=== PATIENT | male | born 1940 | race Caucasian/White ===

== ENCOUNTER 2021-07-27 17:08 | Inpatient (IN) | payer MEDICARE ==
[~2021-07-27] VITALS: Ht 172.7 cm; Wt 93.0 kg
[~2021-07-27 17:08] MED LIST: ALDACTONE 25MG25 MG PO; AUGMENTIN 875-1 EACH PO; BROVANA15 MCG/2 M NEB; BUDESONIDE0.5 MG/2 M NEB; COMBIVENT0.074 GM/I INH; COZAAR25 MG PO; CRESTOR20 MG PO; CYANOCOBAL1000 MCG/1 IM; DOXYCYCLINE HY100 M2 PO; DULERA 200 MCG8.8 GM INH; ELIQUIS2.5 MG PO; ELIQUIS5 MG PO; ENTRESTO 24 MG1 EACH PO; FLOMAX 0.4 MG0.4 MG PO; GLUCOPHAGE XR500 MG PO; HUMALOG100 UNIT/1 SC; LANTUS100 UNIT/1 SQ; LASIX20 MG PO; LEVAQUIN500 MG PO; LOPRESSOR50 MG PO; MEDROL TAB 4 MG4 MG PO; NEURONTIN 300300 MG PO; OMNICEF 300 MG300 MG PO; PLAVIX 75 MG TA75 MG PO; PREDNISONE 50 M50 MG PO; PREDNISONE20 MG PO; SENOKOT-S TABL1 EACH PO; SYNTHROID25 MCG PO; TYLENOL 325MG325 MG PO; VENTOLIN/PROVE0.5 ML INH; XARELTO10 MG PO; ZYRTEC10 M3 PO
[2021-07-27 17:55] LABS: RED BLOOD COUNT 4.02 M/UL (4.20-5.50); WHITE BLOOD COUNT 6.4 K/UL (4.5-11.0)
[2021-07-27 18:17] LABS: BUN/CREATININE RATIO 14 (0-10)
[2021-07-28] MEDS ORDERED: COZAAR25 MG PO (00:04)
[2021-07-28 06:23] LABS: HEMOGLOBIN 10.4 gm/dl (14.0-17.5); RED BLOOD COUNT 3.34 M/UL (4.20-5.50); WHITE BLOOD COUNT 18.4 K/UL (4.5-11.0)
[2021-07-28] MEDS ORDERED: ALBUTEROL2.5 MG/3 M INH (11:43)
[2021-07-28] MEDS ORDERED: BUDESONIDE0.5 MG/2 M INH (11:44)
[2021-07-28] MEDS ORDERED: HUMALOG100 UNIT/1 SQ (11:44)
[2021-07-28 17:43] LABS: BORDETELLA PARAPERTUSSIS Not Detected (Not Detectd); BORDETELLA PERTUSSIS Not Detected (Not Detectd); CHLAMYDIA PNEUMONIAE Not Detected (Not Detectd); CORONAVIRUS HKU1 Not Detected (Not Detectd); CORONAVIRUS NL63 Not Detected (Not Detectd); CORONAVIRUS OC43 Not Detected (Not Detectd); CORONOAVIRUS 229E Not Detected (Not Detectd); HUMAN METAPNEUMOVIRUS Not Detected (Not Detectd); HUMAN RHINOVIRUS/ENTEROVIRUS Not Detected (Not Detectd); INFLUENZA A Not Detected (Not Detectd); INFLUENZA B Not Detected (Not Detectd); MYCOPLASMA PNEUMONIAE Not Detected (Not Detectd); PARAINFLUENZA VIRUS 1 Not Detected (Not Detectd); PARAINFLUENZA VIRUS 2 Not Detected (Not Detectd); PARAINFLUENZA VIRUS 3 Not Detected (Not Detectd); PARAINFLUENZA VIRUS 4 Not Detected (Not Detectd); RESPIRATORY SYNCYTIAL VIRUS Not Detected (Not Detectd)
[2021-07-28 19:41] LABS: SARS-CoV-2 DETECTED (Not Detectd)
[2021-07-29 07:17] LABS: HEMOGLOBIN 11.3 gm/dl (14.0-17.5); RED BLOOD COUNT 3.56 M/UL (4.20-5.50); WHITE BLOOD COUNT 12.1 K/UL (4.5-11.0)
[2021-07-30 05:30] LABS: HEMOGLOBIN 10.6 gm/dl (14.0-17.5); RED BLOOD COUNT 3.35 M/UL (4.20-5.50)
[2021-07-30 05:36] LABS: WHITE BLOOD COUNT 8.2 K/UL (4.5-11.0)
[2021-07-30] MEDS ORDERED: AUGMENTIN 500-500 MG PO (10:38)
[2021-07-30] MEDS ORDERED: LOPRESSOR 25 MG25 MG PO (10:38)
== END 2021-07-30 13:20 | disposition home or self-care (01) | DRG 864 ==
LOC: ER1 17:08 → MED SURG 4 21:16 → CDU 21:16 → MED SURG 4 23:41
PROVIDERS: Internal Medicine Infectious Disease; Physician Assistant; ADMIT Internal Medicine
PROC: 8E0ZXY6 Isolation (ICD-10-PCS; principal; 2021-07-27)
DX: R50.9 Fever, unspecified (principal); U07.1 COVID-19; G93.41 Metabolic encephalopathy; J44.1 Chronic obstructive pulmonary disease with (acute) exacerbation; N17.9 Acute kidney failure, unspecified; I13.0 Hypertensive heart and chronic kidney disease with heart failure and stage 1 through stage 4 chronic kidney disease, or unspecified chronic kidney disease; I48.20 Chronic atrial fibrillation, unspecified; R74.01 Elevation of levels of liver transaminase levels; E11.65 Type 2 diabetes mellitus with hyperglycemia; I25.10 Atherosclerotic heart disease of native coronary artery without angina pectoris; I25.5 Ischemic cardiomyopathy; E11.22 Type 2 diabetes mellitus with diabetic chronic kidney disease; N18.30 Chronic kidney disease, stage 3 unspecified; E87.5 Hyperkalemia; I48.0 Paroxysmal atrial fibrillation; Z79.01 Long term (current) use of anticoagulants; Z95.810 Presence of automatic (implantable) cardiac defibrillator; Z79.4 Long term (current) use of insulin; Z87.01 Personal history of pneumonia (recurrent); Z87.440 Personal history of urinary (tract) infections; Z99.81 Dependence on supplemental oxygen; Z90.49 Acquired absence of other specified parts of digestive tract
CPT/HCPCS: 36415; 70450; 71045; 71250; 76705; 80048; 80053; 80202; 81001; 82550; 82553; 82962; 83605; 83615; 83690; 83735; 83874; 84484; 85025; 86140; 87040; 87081; 87086; 87633; 93005; 94640; 94664; 94760; 96374; 96375; 96376; 99284; J2543; J3370; J7030; J7060; U0002

== ENCOUNTER 2021-08-05 09:18 | Inpatient (IN) | payer MEDICARE ==
[~2021-08-05] VITALS: Ht 175.3 cm; Wt 85.4 kg
[~2021-08-05 09:18] MED LIST changes: +ALBUTEROL2.5 MG/3 M INH; +AUGMENTIN 500-500 MG PO; +BUDESONIDE0.5 MG/2 M INH; +HUMALOG100 UNIT/1 SQ; +LOPRESSOR 25 MG25 MG PO
[2021-08-05 11:07] LABS: HEMOGLOBIN 11.5 gm/dl (14.0-17.5); RED BLOOD COUNT 3.61 M/UL (4.20-5.50); WHITE BLOOD COUNT 16.1 K/UL (4.5-11.0)
[2021-08-05 11:30] LABS: BUN/CREATININE RATIO 14 (0-10)
[2021-08-05] MEDS ORDERED: AUGMENTIN 500-500 MG PO (23:17)
[2021-08-06 05:22] LABS: HEMOGLOBIN 9.9 gm/dl (14.0-17.5); WHITE BLOOD COUNT 13.9 K/UL (4.5-11.0)
[2021-08-06 05:30] LABS: RED BLOOD COUNT 3.15 M/UL (4.20-5.50)
[2021-08-07 04:21] LABS: HEMOGLOBIN 10.2 gm/dl (14.0-17.5); RED BLOOD COUNT 3.21 M/UL (4.20-5.50); WHITE BLOOD COUNT 13.9 K/UL (4.5-11.0)
[2021-08-08 04:25] LABS: HEMOGLOBIN 10.5 gm/dl (14.0-17.5); RED BLOOD COUNT 3.31 M/UL (4.20-5.50)
[2021-08-08 04:30] LABS: WHITE BLOOD COUNT 8.2 K/UL (4.5-11.0)
[2021-08-09 04:46] LABS: HEMOGLOBIN 9.4 gm/dl (14.0-17.5); RED BLOOD COUNT 3.09 M/UL (4.20-5.50)
[2021-08-09 04:53] LABS: WHITE BLOOD COUNT 11.9 K/UL (4.5-11.0)
[2021-08-09] MEDS ORDERED: LOPRESSOR 25 MG25 MG PO (16:31)
[2021-08-09] MEDS ORDERED: XOPENEX0.63 MG/3 INH (16:31)
[2021-08-09] MEDS ORDERED: IPRAT-ALBUT 0.5-3 ML INH ×2 (16:31→16:36)
[2021-08-09] MEDS ORDERED: DOXYCYCLINE HY100 M2 PO (16:33)
[2021-08-09] MEDS ORDERED: OMNICEF 300 MG300 MG PO ×2 (16:33→16:44)
[2021-08-09] MEDS ORDERED: ASPIRIN EC81 MG PO (16:56)
[2021-08-09] MEDS ORDERED: PROTONIX 40 MG40 M1 PO (16:56)
== END 2021-08-09 17:35 | disposition home or self-care (01) | DRG 193 ==
LOC: ER1 09:18 → MED SURG 4 13:11 → CDU 13:11 → MED SURG 4 18:00
PROVIDERS: Emergency Medicine; Internal Medicine; Physician Assistant; ADMIT Internal Medicine
PROC: B24BZZZ Ultrasonography of Heart with Aorta (ICD-10-PCS; principal; 2021-08-06)
DX: J15.9 Unspecified bacterial pneumonia (principal); U07.1 COVID-19; J96.21 Acute and chronic respiratory failure with hypoxia; I13.0 Hypertensive heart and chronic kidney disease with heart failure and stage 1 through stage 4 chronic kidney disease, or unspecified chronic kidney disease; I47.1 Supraventricular tachycardia; N17.9 Acute kidney failure, unspecified; J44.0 Chronic obstructive pulmonary disease with (acute) lower respiratory infection; I42.9 Cardiomyopathy, unspecified; I50.32 Chronic diastolic (congestive) heart failure; I47.2 Ventricular tachycardia; E66.9 Obesity, unspecified; K46.9 Unspecified abdominal hernia without obstruction or gangrene; E11.22 Type 2 diabetes mellitus with diabetic chronic kidney disease; I08.1 Rheumatic disorders of both mitral and tricuspid valves; I48.0 Paroxysmal atrial fibrillation; E03.9 Hypothyroidism, unspecified; N18.30 Chronic kidney disease, stage 3 unspecified; Z87.440 Personal history of urinary (tract) infections; Z79.01 Long term (current) use of anticoagulants; Z95.810 Presence of automatic (implantable) cardiac defibrillator; Z87.01 Personal history of pneumonia (recurrent); Z82.49 Family history of ischemic heart disease and other diseases of the circulatory system; Z99.81 Dependence on supplemental oxygen; Z79.4 Long term (current) use of insulin; Z90.49 Acquired absence of other specified parts of digestive tract; Z68.27 Body mass index [BMI] 27.0-27.9, adult
CPT/HCPCS: ECHO; 0240U; 36415; 36600; 71045; 71046; 71250; 80048; 80053; 80202; 81001; 82550; 82553; 82728; 82803; 82962; 83605; 83735; 83874; 83880; 84484; 85025; 85027; 86140; 87040; 93005; 93306; 94640; 94664; 94760; 96374; 96375; 96376; 99285; G0378; J0692; J0696; J2185; J2930; J3370; J7030; J7070